=== PATIENT | male | born 1990 | race Caucasian/White ===

== ENCOUNTER 2020-05-19 11:47 | Emergency (ER) | payer OTHER ==
[~2020-05-19] VITALS: Ht 175.3 cm; Wt 63.5 kg
[2020-05-19 12:13] LABS: ABSOLUTE EOSINOPHILS 0.1 thou/uL (0.0-0.7); ABSOLUTE LYMPHOCYTES 1.6 thou/uL (0.8-5.3); ABSOLUTE MONOCYTES 0.7 thou/uL (0.0-1.2); ABSOLUTE NEUTROPHILS 3.2 thou/uL (1.6-8.1); BASOPHILS 0.7 %; EOSINOPHILS 1.5 %; HEMATOCRIT 42.9 % (42.0-52.0); LYMPHOCYTES 28.2 %; MCH 33.3 pg (26.0-34.0); MCHC 34.9 g/dL (28.0-37.0); MCV 95.3 fL (80.0-100.0); MPV 7.8 fl. (7.2-11.1); NUCLEATED RBCS 0 /100WBC; PLATELET COUNT* 268 thou/uL (150-400); POLYS 57.6 %; RDW-CV 12.9 % (10.5-14.5); WBC 5.5 thou/uL (4.0-11.0)
[2020-05-19 12:20] LABS: CALCIUM 8.6 mg/dL (8.5-10.1); CREATININE 1.1 mg/dL (0.6-1.3); POTASSIUM 3.7 mmol/L (3.5-5.1)
[2020-05-19 12:28] LABS: URINE BLOOD NEGATIVE (Negative); URINE CLARITY CLEAR; URINE COLOR YELLOW; URINE GLUCOSE-RANDOM NEGATIVE (Negative); URINE KETONES NEGATIVE (Negative); URINE LEUKOCYTES-REFLEX NEGATIVE (Negative); URINE NITRITE-REFLEX NEGATIVE (Negative); URINE PROTEIN TRACE (Negative); URINE SPECIFIC GRAVITY >= 1.030 (1.005-1.030)
[2020-05-19 12:29] LABS: ICTOTEST (BILI CONFIRMATORY) Negative (Negative); URINE BILIRUBIN 1+ (Negative)
[2020-05-19 12:31] LABS: ALBUMIN 3.7 g/dL (3.4-5.0); MAGNESIUM 2.2 mg/dL (1.8-2.4); TOTAL BILIRUBIN 1.4 mg/dL (<0.1-1.0); TOTAL PROTEIN 7.1 g/dL (6.4-8.2)
[2020-05-19 12:34] LABS: ALCOHOL < 10 mg/dL (<10); SALICYLATE < 2.8 mg/dL (2.8-20.0)
[2020-05-19 12:35] LABS: ACETAMINOPHEN < 2 ug/mL (10-30)
[2020-05-19 12:35] LABS: AMP/METHAMP POSITIVE (Negative); BARBITURATES Negative (Negative); BENZODIAZEPINES Negative (Negative); COCAINE Negative (Negative); METHADONE Negative (Negative); OPIATES Negative (Negative); PCP Negative (Negative); THC Negative (Negative)
[2020-05-19 18:00] VITALS: BP 108/66
--- NOTE | 2020-05-21 15:28 | EKG ---
[place] [address] ELECTROCARDIOGRAM REPORT Name: ERIC JASON Room: [facility]#: [id number] Admission: 05/19/20 Attend Phys: Discharge: 05/19/20 Date of : 88 Date of Service: 05/19/20 1156 Report #: [id number] THIS REPORT FOR: //name// [facility] ED Test Date: 2020-05-19 Test Time: 11:56:24 Pat Name: ERIC JASON Department: Room: Gender: [employer]: : 1990 Requested By: Lucas Aiken Order Number: [id number] MD: Fish Moore Measurements Intervals [place] Rate: 94 P: 68 AK: 139 QRS: 82 QRSD: 95 T: 68 QT: 344 QTc: 431 Interpretive Statements Sinus rhythm No previous ECG available for comparison Electronically Signed On 05-21-2020 15:28:28 CDT by Fish Moore [email or web address] <ELECTRONICALLY SIGNED> By: Fish Moore MD, [facility] 05/21/20 1528 1156 1156 Fish Moore MD, FACC /EPI
== END 2020-05-19 18:00 | disposition home or self-care (01) ==
LOC: M.ERS 11:47
PROVIDERS: Emergency Medicine Emergency Medical Services
DX: F32.9 Major depressive disorder, single episode, unspecified (principal); R07.89 Other chest pain